=== PATIENT | male | born 1975 | race Two or more races ===

== ENCOUNTER 2019-11-28 23:58 | Emergency (ER) | payer OTHER ==
[~2019-11-28] VITALS: Ht 175.3 cm; Wt 113.4 kg
[~2019-11-28 23:58] MED LIST: NKM
--- NOTE | 2019-11-29 00:11 | NUR ---
ED Nurse Note: Pt walked in c/o wound on back of head since 3 days. Pt stated he may have gotten bit by a spider and now the masss is growing. Pt stated he attempted to squeeze the mass for puss / drainage. Pt reports more pain margarito turning his head.
[2019-11-29 00:12] VITALS: BP 142/93
--- NOTE | 2019-11-29 00:13 | NUR ---
ED Nurse Note: ermd at bedside for i&D
[2019-11-29] MEDS ORDERED: BACTRIM DS TAB1 EAC1 ORAL (00:27)
[2019-11-29] MEDS ORDERED: IBUPROFEN600 M1 ORAL (00:27)
--- NOTE | 2019-11-29 00:28 | Emergency Room Report ---
History of Present Illness General Chief Complaint: Skin Rash/Abscess Source: Patient Present Illness HPI 44-year-old male with no past medical history. Presents with chief complaint of "spider bite" to the back of his head. He did not see anything biting him. This been ongoing for 4 days now. He tried to pop it and it got worse. Swelling started today. No drainage. No fever chills but no nausea no vom iting. Pain is 8 out of 10. Worse with palpation. Better with no pressure on it. Allergies: Coded Allergies: No Known Allergies (Unverified , 02/16/16) COVID-19 Screening Contact w/high risk pt: No Experienced COVID-19 symptoms?: No COVID-19 Testing performed REDUCING SYSTEM OPERATOR: No Patient History Past Medical History: see triage record, old chart reviewed Past Surgical History: none Pertinent Family History: none Social History: Denies: smoking Immunizations: other Reviewed Nursing Documentation: PMH: Agreed; PSxH: Agreed Nursing Documentation-PMH Past Medical History: No Stated History Review of Systems Eye: Denies: eye pain, blurred vision ENT: Denies: ear pain, nose congestion, throat swelling Respiratory: Denies: cough, shortness of breath Cardiovascular: Denies: chest pain, palpitations Gastrointestinal: Denies: abdominal pain, diarrhea, nausea, vomiting Musculoskeletal: Denies: back pain, joint pain Skin: Denies: rash Neurological: Denies: headache, numbness Endocrine: Denies: increased thirst, increased urine Hematologic/Lymphatic: Denies: easy bruising All Other Systems: negative except mentioned in HPI Physical Exam Vital Signs Date Time Temp Pulse Resp B/P (MAP) Pulse Ox O2 Delivery O2 Flow Rate FiO2 11/29/19 00:00 98.8 73 16 142/93 (109) 98 Room Air Vitals unremarkable Sp02 EP Interpretation: reviewed, normal General Appearance: well appearing, no apparent distress, alert Head: normocephalic, atraumatic, other - On the occipital scalp just above the nape of the neck, there is an indurated area of 4 cm. There is some erythema. There is central process. Eyes: bilateral eye PERRL, bilateral eye EOMI ENT: hearing grossly normal, normal pharynx Neck: full range of motion, supple, no meningismus Respiratory: chest non-tender, lungs clear, normal breath sounds Cardiovascular #1: regular rate, rhythm, no murmur Gastrointestinal: normal bowel sounds, non tender, no mass, no organomegaly, no bruit, non-distended Musculoskeletal: back normal, normal range of motion, gait/station normal Psychiatric: mood/affect normal Procedures Incision and Drainage Incision and Drainage : Consent: Verbal Site: Scalp Blade Size: 11 I & D Procedure: betadine prep, sterile drapes applied, sterile dressing applied Wound Location: head Wound Explored: clean Anesthesia: 1% Lidocaine Volume Anesthetic (ccs): 5 Patient Tolerated: Well Complications: None Progress Area cleaned with Betadine. Local anesthetic with 1% lidocaine. I made a 2 cm incision with 11 blade scalpel. Small amount of purulent discharge. Using a Lyn, I broke up any loculated area. There is small amount of pus expressed. Patient tolerated seizure without any problem. Medical Decision Making Diagnostic Impression: Primary Impression: Abscess ER Course Patient with a scalp abscess. Most likely MRSA. I see no evidence of any sebaceous cyst. no evidence of deep infection or necrotizing fasciitis.. Will discharge home. Dose of antibiotics given here. Last Vital Signs Date Time Temp Pulse Resp B/P (MAP) Pulse Ox O2 Delivery O2 Flow Rate FiO2 11/29/19 00:12 98.8 73 16 142/93 98 Room Air Status: improved Disposition: HOME, SELF-CARE Condition: Stable Scripts Ibuprofen* (MOTRIN*) 600 Mg Tablet 600 MG ORAL Q6H PRN for For Pain, #30 TAB 0 Refills Prov: Adrian Prabhakar MD 11/29/19 Trimethoprim/Sulfamethoxazole 160/800* (BACTRIM DS TABLET*) 1 Each Tablet 1 TAB ORAL Q12H, #14 TAB 0 Refills Prov: Adrian Prabhakar MD 11/29/19 Referrals: NON PHYSICIAN (PCP) Patient Instructions: Abscess Additional Instructions: Keep wound clean. Clean with hydrogen peroxide and then apply antibiotic ointment. Follow-up in 2 days for recheck. You need to follow-up with your doctor or come back here. Return if worse. Adrian Prabhakar MD Nov 29, 2019 00:28
[2019-11-29] MEDS ORDERED: HYDROcodone/Acetamin 5/325 tab ORAL ONE (00:30)
[2019-11-29] MEDS ORDERED: Bactrim-DS 1 tab ORAL ONE (00:30)
[2019-11-29 00:35] VITALS: BP 142/93
--- NOTE | 2019-11-29 00:35 | NUR ---
ER DISCHARGE NOTE: Patient is cleared to be discharged per ERMD, pt is aox4, on room air, with stable vital signs. pt was given dc and prescription instructions, pt was able to verbalize understanding, pt id band removed. pt is able to ambulate with steady gait. pt took all belongings.
== END 2019-11-29 00:35 | disposition home or self-care (01) ==
LOC: EMR 11-29 00:19
DX: L02.811 Cutaneous abscess of head [any part, except face] (principal)
CPT/HCPCS: 99283